=== PATIENT | male | born 1960 | race African-American/Black ===

== ENCOUNTER 2020-05-16 10:23 | Emergency (ER) | payer MEDICAID ==
[~2020-05-16] VITALS: Ht 185.4 cm; Wt 110.0 kg
[2020-05-16] MEDS ORDERED: ATEN-42 PO (10:38)
[2020-05-16] MEDS ORDERED: AMLO10TA80 PO (10:38)
[2020-05-16] MEDS ORDERED: ASPI-1497 PO (10:38)
[2020-05-16 13:37] LABS: HEMATOCRIT. 48.6 % (42.0-52.0); HEMOGLOBIN. 15.8 g/dL (14.0-18.0); MEAN CORPUSCULAR HEMOGLOBIN 27.6 pg (28.0-32.0); MEAN CORPUSCULAR VOLUME 85.2 fL (80.0-94.0); MEAN PLATELET VOLUME 8.9 fl (7.4-10.4); PLATELET 103 x1000/uL (130-400); RED CELL DISTRIBUTION WIDTH 15.1 % (11.6-14.6)
[2020-05-16 13:43] LABS: CHLORIDE 99 mEq/L (98-107)
[2020-05-16 13:47] LABS: PROTHROMBIN TIME 10.9 sec (9.6-11.0)
[2020-05-16 14:01] LABS: PLATELET ESTIMATE DECREASED
[2020-05-16 14:53] VITALS: BP 152/87
== END 2020-05-16 14:58 | disposition home or self-care (01) ==
LOC: ER 10:27
DX: K92.1 Melena (principal); E11.9 Type 2 diabetes mellitus without complications; I10 Essential (primary) hypertension
CPT/HCPCS: 36415; 80053; 85025; 93005; 99283